=== PATIENT | female | born 1970 | race Two or more races ===

== ENCOUNTER 2023-03-25 08:05 | Emergency (ER) | payer MEDICAID, OTHER ==
[~2023-03-25] VITALS: Ht 165.1 cm; Wt 50.0 kg
[2023-03-25 08:10] VITALS: BP 195/98; PULSE 108; RESP 20; O2SAT 94
[2023-03-25 08:48] LABS: Basophils # (auto) 0.1 10 ^3/uL (0-0.2); Eosinophils # (auto) 0.1 10 ^3/uL (0-0.8); Eosinophils % (auto) 1.8 % (0.0-7.0); Hematocrit 39.2 % (36.0-46.0); Hemoglobin 13.1 g/dL (12.2-16.2); Lymphocytes # (auto) 3.8 10 ^3/uL (0.4-5.4); Lymphocytes % (auto) 49.1 % (10.0-50.0); Mean Corpuscular Hemoglobin 28.4 pg (28.0-32.0); Mean Corpuscular Hgb Conc. 33.4 g/dL (32.0-36.0); Monocytes # (auto) 0.9 10 ^3/uL (0-1.3); Monocytes % (auto) 11.6 % (0.0-12.0); Neutrophils # (auto) 2.9 10 ^3/uL (1.6-8.6); Neutrophils % (auto) 36.5 % (37.0-80.0); Nucleated Red Blood Cells % 0.2 %; Red Blood Cells 4.61 10^6/uL (4.0-5.20); Red Cell Distribution Width 15.1 % (11.8-14.3); White Blood Cell 7.8 10^3/uL (4.4-10.8)
[2023-03-25 09:12] LABS: Alanine Aminotransferase 23 U/L (7-40); Albumin 4.6 g/dL (3.2-4.8); Anion Gap 8 (5-15); Aspartate Aminotransferase 38 U/L (13-40); BUN/Creatinine Ratio 29.5 (10.0-20.0); Blood Urea Nitrogen 18 mg/dL (9-23); Calcium 9.5 mg/dL (8.5-10.1); Carbon Dioxide 25 mmol/L (20-30); Chloride 109 mmol/L (98-107); Glucose 95 mg/dL (74-106); Sodium 142 mmol/L (136-145)
[2023-03-25 09:13] LABS: Bilirubin, Total 0.5 mg/dL (0.2-1.0); Total Protein 7.8 g/dL (5.7-8.2)
[2023-03-25 09:17] LABS: Acetaminophen < 2.0 UG/ML (10.0-20.0)
[2023-03-25 09:28] LABS: Salicylate < 3.0 mg/dL (2.8-20.0)
[2023-03-25 10:13] LABS: Alkaline Phosphatase 84 U/L (46-116)
[2023-03-25] MEDS ORDERED: LORazepam 2MG/ML-1ML VIAL IV ONE (11:45)
[2023-03-25] MEDS ORDERED: SODIUM CHLORIDE 0.9% 500 ML IVB ONE (11:45)
[2023-03-25] MEDS ORDERED: SODIUM CHLORIDE 0.9% 1,000 ML IV ONE (11:45)
[2023-03-25] MEDS ORDERED: cloNIDine HCL 0.1 MG TAB PO ONE (11:45)
[2023-03-25 11:58] LABS: Magnesium 1.6 mg/dL (1.6-2.6)
[2023-03-25] MEDS ORDERED: POTASSIUM EFFERVESENT TAB 25 MEQ PO ONE (13:00)
== END 2023-03-25 14:37 | disposition left against medical advice (07) ==
LOC: EDBD 08:05 → ER 08:05
DX: F16.159 Hallucinogen abuse with hallucinogen-induced psychotic disorder, unspecified (principal); I10 Essential (primary) hypertension; E87.6 Hypokalemia; F32.9 Major depressive disorder, single episode, unspecified; F17.210 Nicotine dependence, cigarettes, uncomplicated; F14.10 Cocaine abuse, uncomplicated; Z85.818 Personal history of malignant neoplasm of other sites of lip, oral cavity, and pharynx; Z98.51 Tubal ligation status
CPT/HCPCS: 36415; 80053; 80329; 83690; 83735; 84484; 85025

== ENCOUNTER 2023-06-23 21:40 | Emergency (ER) | payer MEDICAID ==
[~2023-06-23] VITALS: Ht 152.4 cm; Wt 49.0 kg
[2023-06-23 22:45] LABS: Basophils # (auto) 0.1 10 ^3/uL (0-0.2); Basophils % (auto) 0.8 % (0.0-2.0); Eosinophils # (auto) 0 10 ^3/uL (0-0.8); Eosinophils % (auto) 0.4 % (0.0-7.0); Hematocrit 38.1 % (36.0-46.0); Hemoglobin 12.5 g/dL (12.2-16.2); Lymphocytes # (auto) 2.8 10 ^3/uL (0.4-5.4); Lymphocytes % (auto) 32.5 % (10.0-50.0); Mean Corpuscular Hemoglobin 27.4 pg (28.0-32.0); Mean Corpuscular Hgb Conc. 32.7 g/dL (32.0-36.0); Mean Corpuscular Volume 83.7 fL (80.0-100.0); Monocytes # (auto) 0.9 10 ^3/uL (0-1.3); Monocytes % (auto) 10.9 % (0.0-12.0); Neutrophils # (auto) 4.8 10 ^3/uL (1.6-8.6); Neutrophils % (auto) 55.4 % (37.0-80.0); Nucleated Red Blood Cells % 0.1 %; Red Blood Cells 4.55 10^6/uL (4.0-5.20); Red Cell Distribution Width 14.6 % (11.8-14.3); White Blood Cell 8.6 10^3/uL (4.4-10.8)
[2023-06-23 23:00] VITALS: PULSE 89; RESP 18; O2SAT 98
[2023-06-23 23:01] LABS: Alanine Aminotransferase 20 U/L (7-40); Albumin 4.2 g/dL (3.2-4.8); Alkaline Phosphatase 86 U/L (46-116); Anion Gap 8 (5-15); Aspartate Aminotransferase 26 U/L (13-40); BUN/Creatinine Ratio 25.9 (10.0-20.0); Blood Alcohol 3.6 mg/dL (<10); Blood Urea Nitrogen 15 mg/dL (9-23); Calcium 9.2 mg/dL (8.5-10.1); Carbon Dioxide 26 mmol/L (20-30); Chloride 106 mmol/L (98-107); Glucose 109 mg/dL (74-106); Potassium 3.2 mmol/L (3.5-5.1); Sodium 140 mmol/L (136-145)
[2023-06-23 23:02] LABS: Bilirubin, Total 0.4 mg/dL (0.2-1.0); Total Protein 7.1 g/dL (5.7-8.2)
[2023-06-23 23:37] LABS: Acetaminophen < 2.0 UG/ML (10.0-20.0)
[2023-06-23 23:38] LABS: Salicylate < 3.0 mg/dL (2.8-20.0)
[2023-06-24 02:26] LABS: Basophils # (auto) 0.1 10 ^3/uL (0-0.2); Basophils % (auto) 0.8 % (0.0-2.0); Eosinophils # (auto) 0 10 ^3/uL (0-0.8); Eosinophils % (auto) 0.4 % (0.0-7.0); Hematocrit 35.7 % (36.0-46.0); Hemoglobin 11.9 g/dL (12.2-16.2); Lymphocytes # (auto) 2.6 10 ^3/uL (0.4-5.4); Lymphocytes % (auto) 31.2 % (10.0-50.0); Mean Corpuscular Hemoglobin 27.5 pg (28.0-32.0); Mean Corpuscular Hgb Conc. 33.3 g/dL (32.0-36.0); Mean Corpuscular Volume 82.7 fL (80.0-100.0); Monocytes # (auto) 0.7 10 ^3/uL (0-1.3); Monocytes % (auto) 8.8 % (0.0-12.0); Neutrophils % (auto) 58.8 % (37.0-80.0); Nucleated Red Blood Cells % 0.1 %; Red Blood Cells 4.32 10^6/uL (4.0-5.20); Red Cell Distribution Width 14.7 % (11.8-14.3); White Blood Cell 8.4 10^3/uL (4.4-10.8)
[2023-06-24 02:39] LABS: Acetaminophen < 2.0 UG/ML (10.0-20.0); Alanine Aminotransferase 16 U/L (7-40); Alkaline Phosphatase 81 U/L (46-116); Anion Gap 7 (5-15); Aspartate Aminotransferase 21 U/L (13-40); BUN/Creatinine Ratio 29.4 (10.0-20.0); Blood Urea Nitrogen 15 mg/dL (9-23); Calcium 8.7 mg/dL (8.7-10.4); Carbon Dioxide 24 mmol/L (20-30); Chloride 108 mmol/L (98-107); Glucose 114 mg/dL (74-106); Potassium 3.2 mmol/L (3.5-5.1); Sodium 139 mmol/L (136-145)
[2023-06-24 02:40] LABS: Bilirubin, Total 0.4 mg/dL (0.2-1.0); Total Protein 7.1 g/dL (5.7-8.2)
[2023-06-24 02:41] LABS: Salicylate < 3.0 mg/dL (2.8-20.0)
[2023-06-24 07:30] VITALS: PULSE 73; RESP 16; O2SAT 97
[2023-06-24] MEDS: LORazepam 0.5 MG TAB PO ONE (08:48)
[2023-06-24] MEDS: OLANZapine 5 MG TAB PO ONE (08:50)
[2023-06-24 09:15] LABS: Amphetamine Screen, Urine Neg (NEGATIVE); Barbiturate Scree,Urine Neg (NEGATIVE); Benzodiazephine Screen, Urine Neg (NEGATIVE); Cannabinoid Screen, Urine Neg (NEGATIVE); Cocaine Screen, Urine Neg (NEGATIVE); Opiate Scree,Urine Pos (NEGATIVE); Phencyclidine Screen, Urine Neg (NEGATIVE)
[2023-06-24 09:22] LABS: Urine Bacteria NONE SEEN /hpf (None Seen); Urine Blood Negative /uL (Negative); Urine Budding Yeast MANY /hpf (None Seen); Urine Clarity HAZY (Clear); Urine Color Yellow (Yellow); Urine Mucus FEW (None Seen); Urine Protein, UAD Negative (Negative); Urine Urobilinogen Normal (Negative); Urine WBC 1 /hpf (0 - 5); Urine pH 7.5 (5.0-8.0)
[2023-06-24 20:00] VITALS: PULSE 82; RESP 18; O2SAT 98
[2023-06-25 08:00] VITALS: PULSE 100; RESP 20; O2SAT 100
[2023-06-25 08:15] VITALS: BP 158/93; PULSE 98; RESP 20; TEMP 98; O2SAT 100
== END 2023-06-25 16:13 | disposition left against medical advice (07) ==
LOC: EDBD 21:40 → ER 21:40
DX: F19.959 Other psychoactive substance use, unspecified with psychoactive substance-induced psychotic disorder, unspecified (principal); R10.2 Pelvic and perineal pain; F20.9 Schizophrenia, unspecified; R45.851 Suicidal ideations; R45.850 Homicidal ideations; F31.9 Bipolar disorder, unspecified; F17.210 Nicotine dependence, cigarettes, uncomplicated; F11.10 Opioid abuse, uncomplicated; F15.10 Other stimulant abuse, uncomplicated; R51.9 Headache, unspecified; M54.2 Cervicalgia
CPT/HCPCS: 36415; 70450; 72125; 80053; 80307; 80320; 80329; 81001; 84702; 85025; 99285; J7030

== ENCOUNTER 2023-06-30 19:30 | Emergency (ER) | payer MEDICAID ==
[~2023-06-30] VITALS: Ht 162.6 cm; Wt 50.0 kg
[2023-06-30 20:48] LABS: Basophils # (auto) 0 10 ^3/uL (0-0.2); Basophils % (auto) 0.6 % (0.0-2.0); Eosinophils # (auto) 0 10 ^3/uL (0-0.8); Eosinophils % (auto) 0.2 % (0.0-7.0); Hematocrit 35.7 % (36.0-46.0); Hemoglobin 11.8 g/dL (12.2-16.2); Lymphocytes # (auto) 2.6 10 ^3/uL (0.4-5.4); Lymphocytes % (auto) 36.8 % (10.0-50.0); Mean Corpuscular Hemoglobin 27.2 pg (28.0-32.0); Mean Corpuscular Hgb Conc. 33.1 g/dL (32.0-36.0); Mean Corpuscular Volume 82.2 fL (80.0-100.0); Monocytes # (auto) 0.7 10 ^3/uL (0-1.3); Monocytes % (auto) 9.4 % (0.0-12.0); Neutrophils # (auto) 3.7 10 ^3/uL (1.6-8.6); Nucleated Red Blood Cells % 0.2 %; Red Blood Cells 4.35 10^6/uL (4.0-5.20); Red Cell Distribution Width 14.9 % (11.8-14.3); White Blood Cell 7.1 10^3/uL (4.4-10.8)
[2023-06-30] MEDS: DICYCLOMINE HCL (10MG/ML) 2 ML AMPULE IM ONE (20:57)
[2023-06-30 20:58] LABS: Chloride 110 mmol/L (98-107); Potassium 2.9 mmol/L (3.5-5.1); Sodium 144 mmol/L (136-145)
[2023-06-30 20:59] LABS: Anion Gap 8 (5-15); Calcium 9.3 mg/dL (8.5-10.1); Carbon Dioxide 26 mmol/L (20-30)
[2023-06-30 21:04] LABS: Blood Alcohol < 3.0 mg/dL (<10); Blood Urea Nitrogen 14 mg/dL (9-23); Glucose 105 mg/dL (74-106)
[2023-06-30 21:29] LABS: Lipase 106 U/L (12-53)
[2023-07-01] MEDS: POTASSIUM CHL 20MEQ/100ML 100 ML IV SCH (01:30)
[2023-07-01] MEDS: HYDROcodone-ACET 10/325MG TAB PO ONE (02:13)
[2023-07-01 05:30] VITALS: PULSE 77; RESP 17; O2SAT 96
[2023-07-01] MEDS: POTASSIUM EFFERVESENT TAB 25 MEQ PO ONE (06:14)
[2023-07-01 07:49] LABS: Urine WBC None Seen /hpf (0 - 5)
[2023-07-01 07:58] LABS: Urine Amorphous Crystal MOD /hpf (None Seen); Urine Bacteria FEW /hpf (None Seen); Urine Blood Negative /uL (Negative); Urine Clarity HAZY (Clear); Urine Color Yellow (Yellow); Urine Protein, UAD Negative (Negative); Urine Specific Gravity 1.016 (1.001-1.035); Urine Urobilinogen Normal (Negative)
[2023-07-01 08:06] LABS: Amphetamine Screen, Urine Neg (NEGATIVE); Barbiturate Scree,Urine Neg (NEGATIVE); Benzodiazephine Screen, Urine Neg (NEGATIVE); Cannabinoid Screen, Urine Neg (NEGATIVE); Cocaine Screen, Urine Neg (NEGATIVE); Opiate Scree,Urine Neg (NEGATIVE); Phencyclidine Screen, Urine Neg (NEGATIVE)
[2023-07-01 08:07] VITALS: PULSE 70; RESP 16; O2SAT 97
[2023-07-01] MEDS: SERTRALINE HCL 50 MG TAB PO ONE (16:08)
[2023-07-01] MEDS: QUEtiapine FUMARATE 25 MG TAB PO ONE (16:09)
[2023-07-01] MEDS: LORazepam 2MG/ML-1ML VIAL IM ONE (17:50)
[2023-07-01] MEDS: HALOPERIDOL LACTATE 5 MG/ML INJ VIAL ONE (19:13)
[2023-07-01] MEDS: HALOPERIDOL LACTATE 5 MG/ML INJ VIAL IM ONE (19:15)
[2023-07-02 07:20] VITALS: PULSE 88; RESP 16; O2SAT 98
[2023-07-02] MEDS: SERTRALINE HCL 50 MG TAB PO SCH (10:19)
[2023-07-02 20:00] VITALS: PULSE 78; RESP 16; O2SAT 99
[2023-07-02] MEDS: ACETAMINOPHEN 500 MG TAB PO ONE (23:20)
[2023-07-03] MEDS: LORazepam 0.5 MG TAB PO ONE (00:46)
[2023-07-03 08:13] VITALS: PULSE 94; RESP 16; O2SAT 99
[2023-07-03 11:15] VITALS: RESP 16; O2SAT 99
[2023-07-03 16:55] VITALS: BP 160/91; PULSE 100; RESP 15; TEMP 98; O2SAT 99
== END 2023-07-03 18:20 | disposition short-term general hospital (02) ==
LOC: EDUNIT# 19:30 → ER 19:30 → EDBD 19:30 → ER 07-03 18:20
DX: R45.851 Suicidal ideations (principal); R10.2 Pelvic and perineal pain; D64.9 Anemia, unspecified; E87.6 Hypokalemia; R74.8 Abnormal levels of other serum enzymes; F17.210 Nicotine dependence, cigarettes, uncomplicated
CPT/HCPCS: 36415; 80048; 80307; 80320; 81001; 83690; 84132; 84484; 84702; 85025; 96372; 99285; J0500; J1630; J2060; 74176; 93005